=== PATIENT | male | born 2000 | race Native Hawaiian/Other Pacific Islander ===

== ENCOUNTER 2019-04-24 20:18 | Emergency (ER) | payer OTHER ==
[~2019-04-24] VITALS: Ht 157.5 cm; Wt 67.2 kg
[2019-04-24 22:03] VITALS: BP 121/63
== END 2019-04-24 22:04 | disposition home or self-care (01) ==
LOC: M ED 20:18
DX: Z20.828 Contact with and (suspected) exposure to other viral communicable diseases (principal)